=== PATIENT | female | born 2000 | race African-American/Black ===

== ENCOUNTER → 2024-06-18 | Outpatient (CLI) | payer OTHER | LOC: M RAD 10:22 | PROVIDERS: ATTEND Nurse Practitioner Family | DX: N93.9 Abnormal uterine and vaginal bleeding, unspecified (principal); R10.30 Lower abdominal pain, unspecified ==

== ENCOUNTER → 2025-03-10 | Outpatient (CLI) | payer OTHER ==
[2025-03-10 11:23] LABS: PROLACTIN 15.49 NG/ML
[2025-03-10 11:24] LABS: ESTRADIOL 60.7 PG/ML; LUTEINIZING HORMONE 8.8 mIU/ML
[2025-03-10 11:25] LABS: FREE T4 1.36 NG/DL (0.89-1.76)
[2025-03-11 08:42] LABS: DEHYDROEPIANDROSTERONE SULFATE 230.0 mcg/dL (14-349)
[2025-03-14 15:41] LABS: ANTI MULLERIAN HORMONE 2.28 ng/mL (0.69-13.39)
== END ==
LOC: M PLALAB 08:12
PROVIDERS: ATTEND Nurse Practitioner Family
DX: N96 Recurrent pregnancy loss (principal)

== ENCOUNTER → 2025-03-17 | Outpatient (CLI) | payer OTHER ==
[~2025-03-17] MED LIST: PROHANCE 279.3MG/ML 15ML VIAL ONE
== END ==
LOC: M PLAIMG 10:58
PROVIDERS: ATTEND Obstetrics & Gynecology
DX: Z12.39 Encounter for other screening for malignant neoplasm of breast (principal); Z84.81 Family history of carrier of genetic disease; Z80.3 Family history of malignant neoplasm of breast
CPT/HCPCS: A9579; C8908

== ENCOUNTER → 2025-03-21 | Outpatient (CLI) | payer OTHER | LOC: M WHC 14:10 | PROVIDERS: ATTEND Nurse Practitioner Family | DX: N96 Recurrent pregnancy loss (principal) ==